=== PATIENT | male | born 1985 | race American Indian/Alaskan Native ===

== ENCOUNTER 2018-07-24 10:11 | Emergency (ER) | payer BC ==
[2018-07-24] MEDS ORDERED: Sodium Chloride 0.9% 1,000 ML IV STA (11:59)
[2018-07-24 12:27] LABS: BASO % 0.6 % (0.0-2.0); EOS # 0.1 K/uL (0.0-0.7); HEMOGLOBIN 14.6 g/dL (12.0-18.0); LYMPH # 1.3 K/uL (1.0-4.3); MEAN CELL VOLUME 88.6 fl (80.0-94.0); MEAN CORPUSCULAR HEMOGLOBIN 30.1 pg (27.0-31.0); MEAN PLATELET VOLUME 8.7 fl (7.2-11.7); MONO # 0.5 K/uL (0.0-0.8); MONO % 8.9 % (0.0-10.0); NEUT # 3.6 K/uL (1.8-7.0); NEUT % 64.5 % (50.0-75.0); NRBC % 0.2 % (0.0-0.0); RBC 4.84 Mil/uL (4.40-5.90); RED CELL DISTRIBUTION WIDTH 13.2 % (11.5-14.5); WHITE BLOOD COUNT 5.6 K/uL (4.8-10.8)
[2018-07-24 12:39] LABS: ALB/GLOB RATIO 1.4 (1.0-2.1); ALBUMIN 4.5 g/dL (3.5-5.0); ALT/SGPT 41 U/L (21-72); AST/SGOT 29 U/L (17-59); BLOOD UREA NITROGEN 13 mg/dl (9-20); CALCIUM 9.7 mg/dL (8.4-10.2); GFR NON-AFRICAN AMERICAN > 60
--- NOTE | 2018-07-24 12:39 | CT ---
Date of service: 07/24/2018 PROCEDURE: CT HEAD WITHOUT CONTRAST. HISTORY: Headache COMPARISON: None available. TECHNIQUE: Axial computed tomography images were obtained through the head/brain without intravenous contrast. Radiation dose: Total exam DLP = 829.14 mGy-cm. This CT exam was performed using one or more of the following dose reduction techniques: Automated exposure control, adjustment of the mA and/or kV according to patient size, and/or use of iterative reconstruction technique. FINDINGS: HEMORRHAGE: No intracranial hemorrhage. BRAIN: Adames-white matter differentiation is preserved. There is no mass, mass effect or abnormal extra-axial fluid collection. There is no territorial infarction. The midline sagittal structures are normal. VENTRICLES: The ventricles are normal in size, shape and configuration. CALVARIUM: There is no calvarial fracture or extracranial soft tissue swelling. PARANASAL SINUSES: Predominantly clear. MASTOID AIR CELLS: Predominantly clear. OTHER FINDINGS: None. IMPRESSION: No acute intracranial abnormality.
--- NOTE | 2018-07-24 12:44 | ED PDOC ---
HPI: Headache Time Seen by Provider: 07/24/18 10:59 Chief Complaint (Nursing): Headache History Per: Patient Additional Complaint(s): Pt. states for the past 6 weeks he's had L sided "head pressure." Symptom came on progressively and is constant but worsens when he "gets busy at work." Reports no hx of previous headaches in the past. Has not used any meds to help relieve symptoms. Attempted to make an appointment with a new PMD but appointment is not until 08/2018. Denies fever, chills, neck pain/stiffness, trauma, LOC, N/V, light sensitivity, rash. Past Medical History Reviewed: Historical Data, Nursing Documentation, Vital Signs Vital Signs: Last Vital Signs Temp 97.4 F L 07/24/18 11:23 Pulse 58 L 07/24/18 11:23 Resp 16 07/24/18 11:23 BP 133/80 07/24/18 11:23 Pulse Ox 98 07/24/18 11:23 - Medical History PMH: Denies: Chronic Kidney Disease - Family History Family History: States: No Known Family Hx - Home Medications Home Medications: Ambulatory Orders Medication Instructions Recorded Metoclopramide [Reglan] 10 mg PO TID PRN #10 tab 07/24/18 Naproxen [Naprosyn] 500 mg PO BID PRN #10 tab 07/24/18 - Allergies Allergies/Adverse Reactions: Allergies Allergy/AdvReac Type Severity Reaction Status Date / Time No Known Allergies Allergy Verified 07/24/18 11:22 Review of Systems ROS Statement: Except As Marked, All Systems Reviewed And Found Negative Physical Exam - Physical Exam Appears: Positive for: Well, Non-toxic, No Acute Distress Head Exam: Positive for: ATRAUMATIC, NORMAL INSPECTION, NORMOCEPHALIC Skin: Positive for: Normal Color, Warm. Negative for: Rash Eye Exam: Positive for: Normal appearance, EOMI, PERRL ENT: Positive for: Normal ENT Inspection Neck: Positive for: Normal, Painless ROM, Supple Gastrointestinal/Abdominal: Positive for: Soft. Negative for: Tenderness Neurological/Psych: Positive for: Awake, Alert, Symmetric/Intact Strength, Oriented (x3), Gait (steady, unassisted) - Laboratory Results Result Diagrams: 07/24/18 12:20 07/24/18 12:20 Lab Results: Total Bilirubin 0.7 mg/dl (0.2-1.3) 07/24/18 12:20 AST 29 U/L (17-59) 07/24/18 12:20 ALT 41 U/L (21-72) 07/24/18 12:20 Alkaline Phosphatase 93 U/L (38-126) 07/24/18 12:20 Total Protein 7.7 G/DL (6.3-8.2) 07/24/18 12:20 Albumin 4.5 g/dL (3.5-5.0) 07/24/18 12:20 Globulin 3.2 gm/dL (2.2-3.9) 07/24/18 12:20 Albumin/Globulin Ratio 1.4 (1.0-2.1) 07/24/18 12:20 - ECG O2 Sat by Pulse Oximetry: 98 - Progress ED Course And Treament: Labs, reglan 10mg IVPB, IV NS bolus x 1, CT head w/o contrast ordered. 1300 CT head w/o contrast: negative as per radiology report. Re-evaluation Time: 13:10 (Reports complete relief of headache. Advised to f/u with Dr. Capellan for further evaluation but is to go to ED immediately if symptoms worsen. Repeat neuro exam is non-focal. ) Condition: Re-examined, Improved Disposition - Clinical Impression Clinical Impression: Acute headache - Patient ED Disposition Is Patient to be Admitted: No - Disposition Referrals: Ant Capellan MD [Medical Doctor] - [facility] [Outside] Disposition: Routine/Home Disposition Time: 13:10 Condition: IMPROVED Additional Instructions: FOLLOW UP WITH YOUR DOCTOR OR DR. CAPELLAN FOR FURTHER EVALUATION RETURN TO ED IMMEDIATELY IF SYMPTOMS WORSEN SIMÓN GONZALEZ, thank you for letting us take care of you today. Your provider was Juan Eagle MD and you were treated for HEAD PRESSURE. The emergency medical care you received today was directed at your acute symptoms. If you were prescribed any medication, please fill it and take as directed. It may take several days for your symptoms to resolve. Return to the Emergency Department if your symptoms worsen, do not improve, or if you have any other problems. Please contact your doctor or call one of the physicians/clinics you have been referred to that are listed on the Patient Visit Information form that is in cluded in your discharge packet. Bring any paperwork you were given at discharge with you along with any medications you are taking to your follow up visit. Our treatment cannot replace ongoing medical care by a primary care provider outside of the emergency department. Thank you for allowing the [facility] team to be part of your care today. If you had an X-Ray or CT scan: A Radiologist will review the ED reading if any change in treatment is needed we will contact you. If you had a blood, urine, or wound culture: It will take several days for the results, if any change in treatment is needed we will contact you. If you had an STI test: It will take 48 hours for the results. Please call after 1 week if you have not heard back. Prescriptions: Metoclopramide [Reglan] 10 mg PO TID PRN #10 tab PRN Reason: headache or nausea Naproxen [Naprosyn] 500 mg PO BID PRN #10 tab PRN Reason: Pain Instructions: Acute Headache (ED) Forms: [facility] (Khmer)
[2018-07-24 14:15] VITALS: BP 120/78; PULSE 80; RESP 18; TEMP 98.8; O2SAT 99
== END 2018-07-24 13:55 | disposition home or self-care (01) ==
LOC: H.ER 10:11
DX: R51 Headache (principal)
CPT/HCPCS: 70450; 80053; 85025; 85651; 96361; 96374; 99285; J2765; J7030